=== PATIENT | female | born 1990 | race Caucasian/White ===

== ENCOUNTER 2019-04-14 16:35 | Emergency (ER) | payer BC ==
[~2019-04-14] VITALS: Ht 172.7 cm; Wt 86.2 kg
== END 2019-04-14 19:11 | disposition left against medical advice (07) ==
LOC: ED 16:35
DX: K81.0 Acute cholecystitis (principal); F17.200 Nicotine dependence, unspecified, uncomplicated
CPT/HCPCS: 76705; 80053; 81001; 83690; 84703; 85025; 96361; 96365; 96368; 96375; 96376; 99284-25; J0696; J1170; J2405; J7030